=== PATIENT | male | born 1950 | race Two or more races ===

== ENCOUNTER 2016-10-02 18:24 | Emergency (ER) | payer OTHER ==
[~2016-10-02] VITALS: Ht 177.8 cm; Wt 83.9 kg
[2016-10-02 18:53] VITALS: BP 111/74
[2016-10-02 19:36] VITALS: BP 111/74
--- NOTE | 2016-10-02 20:32 | Emergency Room Report ---
History of Present Illness General Chief Complaint: Pain Source: Patient Present Illness HPI 65 y/o diabetic male c/o body aches x 2 months. States he has been to 4 hospitals in the past 2 months and was admitted for 1 for 1 day and then discharged and does not know why he feels this way. States he just had labs drawn yesterday and wants to know why he feels body aches all over. States he feels like he is being poisoned. Patient is currently on metformin 1000mg and was recently given an Rx for insulin but has not started it. Patient stated he does not want us to draw labs and is requesting medication for his pain. Allergies: Coded Allergies: IBUPROFEN (Verified Allergy, Unknown, 10/02/16) Patient History Reviewed Nursing Documentation: PMH: Agreed, PSxH: Agreed Nursing Documentation-PMH Past Medical History: No History, Except For Hx Hypertension: Yes Hx Diabetes: Yes Review of Systems All Other Systems: negative except mentioned in HPI Physical Exam Vital Signs Date Time Temp Pulse Resp B/P Pulse Ox O2 Delivery O2 Flow Rate FiO2 10/02/16 18:36 97.3 95 16 111/74 94 Room Air Sp02 EP Interpretation: reviewed, normal General Appearance: no apparent distress, alert, GCS 15, non-toxic Head: normocephalic, atraumatic Eyes: bilateral eye normal inspection ENT: hearing grossly normal, normal pharynx, no angioedema, normal voice Neck: full range of motion, supple/symm/no masses Respiratory: chest non-tender, lungs clear, normal breath sounds, speaking full sentences Cardiovascular #1: regular rate, rhythm, no edema Musculoskeletal: back normal, gait/station normal, normal range of motion, non- tender, no calf tenderness, other - No GURINDER Neurologic: alert, oriented x3, responsive, motor strength/tone normal, sensory intact, speech normal Psychiatric: judgement/insight normal, memory normal, mood/affect normal, no suicidal/homicidal ideation, other - aggitated Skin: normal color, no rash, warm/dry, well hydrated Medical Decision Making PA Attestation Dr. Levin is my supervising physician with whom patient management has been discussed with. Diagnostic Impression: Primary Impression: Pain Additional Impressions: Diabetes type 2, uncontrolled Qualified Codes: E11.65 - Type 2 diabetes mellitus with hyperglycemia Myalgia Hyperglycemia ER Course Pt. presents to the ED c/o body aches Ddx considered but are not limited to viral syndrome, DM (hyperglycemia), RA, autoimmune myalgia, MS, strain, sprain, dehydration, electrolyte imbalance, neuropathy Vital signs: are WNL, pt. is afebrile H&PE are most consistent with uncontrolled DM w/ hyperglycemia ORDERS: BMP, Accucheck ED INTERVENTIONS: none required at this time. DISCHARGE: Patient would not allow for us to draw labs. Patient has left AMA and technically eloped prior to signing completed AMA form per RN. My Orders - ELDA MORFIN Procedure Category Date Status Time Accu Check (Ed Order) CARE 10/02/16 Transmitted 19:07 Basic Metabolic Panel LAB 10/02/16 Logged 19:14 Blood Glucose 359+/- (pending electroencephalograph technician at time of chart closure) Last Vital Signs Date Time Temp Pulse Resp B/P Pulse Ox O2 Delivery O2 Flow Rate FiO2 10/02/16 19:36 97.3 85 16 111/74 94 Room Air Disposition: ELOPED Condition: Stable Referrals: [facility],REFERRING (PCP) ELDA MORFIN Oct 02, 2016 20:32
== END 2016-10-02 19:30 | disposition left against medical advice (07) ==
LOC: EMR 19:30
DX: R52 Pain, unspecified (principal); E11.65 Type 2 diabetes mellitus with hyperglycemia; M79.1 Myalgia; Z88.6 Allergy status to analgesic agent; I10 Essential (primary) hypertension
CPT/HCPCS: 82962; 99282